=== PATIENT | male | born 1960 | race Caucasian/White ===

== ENCOUNTER → 2016-09-11 | Outpatient (CLI) | payer BC ==
[~2016-09-11] MED LIST: ACET-1311 PO; ASPEC81 PO; ATOR-22 PO; B-COMPLEX PO; BND25X PO; FLV400 PO; GLUCOSAMINE PO; IBUP-1459 PO; IRBE1TAB48 PO; LEVO150T PO; MULT-513 PO
[2016-09-11 09:35] LABS: BASO % 0.8 %; BASO ABS # 0.05 K/uL (0-0.2); COMPLETE YES; EOS % 14.5 %; HEMATOCRIT 44.5 % (42-52); IG% 0.2 %; LYMPH % 26.9 %; LYMPH ABS # 1.73 K/uL (1.2-3.4); MEAN CELL VOLUME 93.7 fL (80-100); MEAN CORPUSCULAR HEMOGLOBIN 32.4 pg (25-34); MEAN CORPUSCULAR HGB CONC 34.6 g/dl (32-36); MEAN PLATELET VOLUME 9.8 fL (7.4-10.4); MONO % 8.1 %; NEUT % 49.5 %; PLATELET COUNT 303 K/uL (130-400); RED BLOOD COUNT 4.75 M/uL (4.7-6.1); WHITE BLOOD COUNT 6.43 K/uL (4.8-10.8)
[2016-09-11 09:36] LABS: URINE APPEARANCE CLEAR (CLEAR); URINE BILIRUBIN NEG (NEG); URINE COLOR DK YELLOW; URINE NITRITE NEG (NEG); UROBILINOGEN NEG (NEG); ZZUR CULT IF INDIC CLEAN CATCH NO
[2016-09-11 09:38] LABS: MANUAL MICROSCOPIC REQUIRED? NO; REVIEW REQ? NO
[2016-09-11 09:48] LABS: ALT/SGPT 41 U/L (12-78); BLOOD UREA NITROGEN 24 mg/dl (7-18); BUN/CREATININE RATIO 24.8 (10-20); CARBON DIOXIDE 24 mmol/L (21-32); CHLORIDE 109 mmol/L (98-107); CHOLESTEROL 154 mg/dl (0-200); CREATININE 0.96 mg/dl (0.60-1.40); GLUCOSE 103 mg/dl (70-99); SODIUM 143 mmol/L (136-145); TRIGLYCERIDES 84 mg/dl (0-150); VERY LOW DENSITY LIPOPROT CALC 17 mg/dl
[2016-09-11 09:57] LABS: ALB/GLOB RATIO 1.3 (0.9-2); ALKALINE PHOSPHATASE 68 U/L (45-117); AST/SGOT 27 U/L (15-37); CHOLESTEROL/HDL RATIO 2.6; HDL CHOLESTEROL 59 mg/dl; LDL CHOLESTEROL CALCULATED 78 mg/dl; THYROID STIMULATING HORMONE 0.308 uIu/ml (0.300-4.500)
== END | disposition home or self-care (01) ==
LOC: C.LAB 07:29
PROVIDERS: ATTEND Internal Medicine
DX: E05.00 Thyrotoxicosis with diffuse goiter without thyrotoxic crisis or storm (principal); E03.9 Hypothyroidism, unspecified; E78.00 Pure hypercholesterolemia, unspecified; I10 Essential (primary) hypertension; R73.9 Hyperglycemia, unspecified; R97.20 Elevated prostate specific antigen [PSA]

== ENCOUNTER → 2016-12-31 | Outpatient (CLI) | payer BC ==
[2016-12-31 10:08] LABS: % FREE PSA 9.8 %; FREE PSA 0.45 ng/ml; PROSTATE SPECIFIC ANTIGEN 4.59 ng/ml (0.000-4.000)
== END | disposition home or self-care (01) ==
LOC: C.LAB 07:35
PROVIDERS: ATTEND Urology
DX: R97.20 Elevated prostate specific antigen [PSA] (principal)

== ENCOUNTER → 2017-01-07 | Outpatient (CLI) | payer BC ==
[2017-01-07 16:58] LABS: BLOOD UREA NITROGEN 20 mg/dl (7-18); BUN/CREATININE RATIO 22.2 (10-20)
== END | disposition home or self-care (01) ==
LOC: C.LAB 15:26
PROVIDERS: ATTEND Urology
DX: R97.20 Elevated prostate specific antigen [PSA] (principal)

== ENCOUNTER → 2017-01-10 | Outpatient (CLI) | payer BC ==
[~2017-01-10] MED LIST changes: +GADAVIST IV PRN
--- NOTE | 2017-01-10 16:03 | DIAGNOSTIC IMAGING REPORT ---
PROSTATE MRI COMBO CLINICAL HISTORY: 56 years-old Male presenting with elevated PSA. PSA 4.59 ng/mL. TECHNIQUE: Multisequence, multiplanar MR imaging of the prostate was performed before and after the administration of intravenous contrast. IV contrast: 10.5 mL of Gadavist. COMPARISON: None. FINDINGS: Prostate: The prostate measures 4.5 x 3.0 x 4.5 cm (calculated volume 32 mL). Mild changes of benign prostatic hyperplasia. Precontrast T1 weighted imaging demonstrates no evidence of intrinsic T1 hyperintensity to suggest hemorrhage. Seminal vesicles normal. Lesion 1: Location: Right anterior peripheral zone at the base to mid gland does not abut the overlying prostate capsule. This does not appear to invade the transition zone. The lesion does not extend across the midline. T2W: 4. Focal 6 mm region of homogeneous T2 hypointensity with partially circumscribed, partially ill-defined margins. No evidence of extraprostatic extension. DWI: 3. Focal mildly/moderately hypointense on ADC and isointense/mildly hyperintense on high b-value DWI. This measures 10 mm on ADC. DCE: Positive. Focal enhancement corresponding to a suspicious finding on T2-weighted imaging and ADC that is earlier than adjacent normal tissue. PI-RADS: 4. Clinically significant cancer is likely to be present. No lesion within the transition zone is identified. Scrotum: Bilateral testes retracted into the distal inguinal canals with associated small hydroceles. Bladder: Mildly trabeculated wall suggesting chronic outlet obstruction. Bowel: Evidence of internal hemorrhoids resulting in wall thickening of the distal rectum and anorectal junction. Lymph nodes: Prominent lymph node in the left external iliac region measuring 8 to 9 mm in the short axis, maintaining normal fatty hilum, possibly reactive. No pathologically enlarged lymph nodes.. Vasculature: Iliac vessels patent. Osseous structures: Normal bone marrow signal intensity. IMPRESSION: 1. 10 mm lesion in the right anterior peripheral zone of the base to mid gland is suspicious for clinically significant cancer (PI-RADS 4). 2. Benign prostatic hyperplasia. Electronically signed by: Miguel Ángel Hill M.D. 01/10/2017 4:01 PM Dictated Date/Time: 01/10/2017 2:48 PM
== END | disposition home or self-care (01) ==
LOC: C.MRIBC 12:56
PROVIDERS: ATTEND Urology
DX: R97.20 Elevated prostate specific antigen [PSA] (principal); N40.0 Benign prostatic hyperplasia without lower urinary tract symptoms

== ENCOUNTER → 2017-04-03 | Outpatient (CLI) | payer BC ==
[~2017-04-03] MED LIST changes: -GADAVIST IV PRN
== END | disposition home or self-care (01) ==
LOC: C.PATHSPEC 17:37
PROVIDERS: ATTEND Urology
DX: C61 Malignant neoplasm of prostate (principal)

== ENCOUNTER → 2017-04-10 | Outpatient (CLI) | payer BC ==
--- NOTE | 2017-04-10 13:40 | DIAGNOSTIC IMAGING REPORT ---
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 FINDINGS: The patient was injected with 25.8 mCi of technetium 99 M MDP. Three-hour delayed whole body images were acquired. There are foci of increased activity within the knees, likely on a degenerative/arthritic basis. There are foci of increased activity within the shoulders and cervical clavicular joints, likely degenerative/arthritic. There are foci of increased activity at the level of each first metatarsal phalangeal joint, likely degenerative/arthritic. There are no foci of increased activity viewed as suspicious for skeletal metastasis. IMPRESSION: No bone scan evidence of skeletal metastasis. Electronically signed by: Eitan Rick M.D. 04/10/2017 1:39 PM Dictated Date/Time: 04/10/2017 1:37 PM
== END | disposition home or self-care (01) ==
LOC: C.NUCL 09:13
PROVIDERS: ATTEND Urology
DX: C61 Malignant neoplasm of prostate (principal)

== ENCOUNTER 2017-06-03 06:55 | Inpatient (IN) | payer OTHER ==
[2017-05-13 15:01] VITALS: Ht 180.3 cm; Wt 111.3 kg
--- NOTE | 2017-05-13 15:18 | PAT Medication Instructions ---
Service Date May 13, 2017. Current Home Medication List Acetaminophen (Tylenol), 650 MG PO PRN Aspirin (Aspirin Ec), 81 MG PO QAM Atorvastatin (Lipitor), 20 MG PO QPM B-Complex Vitamins (Vitamin B-Complex), 1 TAB PO QAM Diphenhydramine Hcl (Diphen), 25 MG PO Q4H PRN for PRURITIS Diphenhydramine Hcl (Sleep) (Diphenhydramine Hcl), 1 TAB PO HS Fluocinonide (Lidex 0.05% Oint), 1 APPLN TOP Glucosamine Sulfate (Glucosamine), 1,000 MG PO QAM Ibuprofen (Ibuprofen), 400 MG PO Q4H PRN for Pain Irbesartan (Irbesartan), 150 MG PO QPM Levothyroxine Sodium (Synthroid), 150 MCG PO QAM Multivitamins/Minerals (Mvi With Minerals), 1 TAB PO QAM Triamcinolone Acet (Aristocort 0.1%), 1 APPLN TOP BID PRN for Affected Skin Folds [Folic Acid], 400 MCG PO QAM Medication Instructions For Your Scheduled Surgery - Check with surgeon and prescribing physician for instructions: Ibuprofen (Ibuprofen), 400 MG PO Q4H PRN for Pain Aspirin (Aspirin Ec), 81 MG PO QAM - Hold the following medications 2 weeks prior to surgery: Glucosamine Sulfate (Glucosamine), 1,000 MG PO QAM - Hold the following medications 24 hours prior to surgery: Triamcinolone Acet (Aristocort 0.1%), 1 APPLN TOP BID PRN for Affected Skin Folds Fluocinonide (Lidex 0.05% Oint), 1 APPLN TOP Irbesartan (Irbesartan), 150 MG PO QPM - Hold the following medications the morning of surgery: [Folic Acid], 400 MCG PO QAM Multivitamins/Minerals (Mvi With Minerals), 1 TAB PO QAM B-Complex Vitamins (Vitamin B-Complex), 1 TAB PO QAM Diphenhydramine Hcl (Diphen), 25 MG PO Q4H PRN for PRURITIS - Take the following medications the morning of surgery with a sip of water: Levothyroxine Sodium (Synthroid), 150 MCG PO QAM Acetaminophen (Tylenol), 650 MG PO PRN (okay to take up to 4 hours prior to surgery if needed) - Take the following medications as scheduled the night before surgery: Diphenhydramine Hcl (Sleep) (Diphenhydramine Hcl), 1 TAB PO HS Diphenhydramine Hcl (Diphen), 25 MG PO Q4H PRN for PRURITIS (if needed) Atorvastatin (Lipitor), 20 MG PO QPM Acetaminophen (Tylenol), 650 MG PO PRN (if needed) If you have any questions please call us at [phone] or [phone] or [phone]
[2017-05-13 16:11] LABS: BASO % 0.7 %; BASO ABS # 0.04 K/uL (0-0.2); EOS % 17.8 %; EOS ABS # 1.04 K/uL (0-0.5); HEMOGLOBIN 14.4 g/dL (14.0-18.0); IG# 0.01 K/uL (0.00-0.02); LYMPH % 23.8 %; LYMPH ABS # 1.39 K/uL (1.2-3.4); MEAN CELL VOLUME 93.8 fL (80-100); MEAN CORPUSCULAR HEMOGLOBIN 32.1 pg (25-34); MEAN CORPUSCULAR HGB CONC 34.3 g/dl (32-36); MONO % 8.4 %; MONO ABS # 0.49 K/uL (0.11-0.59); NEUT % 49.1 %; NEUT ABS # 2.88 K/uL (1.4-6.5); PLATELET COUNT 292 K/uL (130-400); RED CELL DISTRIBUTION WIDTH CV 13.1 % (11.5-14.5); RED CELL DISTRIBUTION WIDTH SD 44.6 fL (36.4-46.3); WHITE BLOOD COUNT 5.85 K/uL (4.8-10.8)
[2017-05-13 16:18] LABS: CALCIUM 9.1 mg/dl (8.5-10.1); CREATININE 0.98 mg/dl (0.60-1.40); POTASSIUM 3.8 mmol/L (3.5-5.1)
--- NOTE | 2017-05-13 16:21 | DIAGNOSTIC IMAGING REPORT ---
CHEST 2 VIEWS ROUTINE CLINICAL HISTORY: PAT preoperative evaluation COMPARISON STUDY: No previous studies for comparison. FINDINGS: The bones soft tissues and hemidiaphragms are normal. The cardiomediastinal silhouette is normal. The lungs are clear. The pulmonary vasculature is normal. IMPRESSION: Negative chest. The above report was generated using voice recognition software. It may contain grammatical, syntax or spelling errors. Electronically signed by: Leander Rodriguez M.D. 05/13/2017 4:20 PM Dictated Date/Time: 05/13/2017 4:20 PM
[~2017-06-03] VITALS: Ht 180.3 cm; Wt 111.3 kg
[2017-06-03] VITALS (7 sets, daily range): BP systolic 121–148; BP diastolic 76–98; PULSE 85–96; TEMP 36.5–36.9; O2SAT 94–98
[~2017-06-03 06:55] MED LIST changes: -ASPEC81 PO; +ASPI81TA28 PO; +B-CO1TAB29 PO; -B-COMPLEX PO; -BND25X PO; +CEFAZOLIN 2000MG IV PUSH 15 ML IV SCH; +DIPH1TAB49 PO; +DIPH50TA10 PO; -FLV400 PO; +FOLIC ACID PO; +GLUC10007 PO; -GLUCOSAMINE PO; +HEPARIN SOD 5000 UNIT/0.5 ML CARP SQ SCH; -IBUP-1459 PO; +IBUP1CAP9 PO; +LACTATED RINGER'S 1000ML 1,000 ML IV SCH; +LDXO60 TOP; +TRMCR130WC TOP
[2017-06-03] MEDS ORDERED: NEOSTIGMINE METHYLSULFATE 5 MG/5 ML SYR ONE (06:58)
[2017-06-03] MEDS ORDERED: LARYING-O-JET KIT (LTA) ONE (06:58)
[2017-06-03] MEDS ORDERED: PROPOFOL IV EMULSION 10 MG/ML 20 ML VIAL IV ONE (06:58)
[2017-06-03] MEDS ORDERED: GLYCOPYRROLATE INJ 0.2 MG/ML VIAL ONE ×2 (06:58→08:59)
[2017-06-03] MEDS ORDERED: LIDOCAINE HCL 2% 2 ML VIAL (20MG/ML) ONE (06:58)
[2017-06-03] MEDS ORDERED: ONDANSETRON INJ 2 MG/ML 2 ML VIAL ONE (06:58)
[2017-06-03] MEDS ORDERED: EpHEDrine SULFATE 50MG/5ML SYR ONE (06:58)
[2017-06-03] MEDS ORDERED: ROCURONIUM BROMIDE 10 MG/ML 5 ML VIAL IV ONE ×2 (06:58→08:59)
[2017-06-03] MEDS ORDERED: FENTANYL CITRATE INJ 50 MCG/1 ML 2 ML VIAL ONE (06:58)
[2017-06-03] MEDS ORDERED: MIDAZOLAM HCL 1 MG/ML 2ML VIAL ONE (06:58)
[2017-06-03] MEDS ORDERED: PHENYLEPHRINE 100MCG/ML 5ML SYR ONE (06:58)
[2017-06-03] MEDS ORDERED: DEXAMETHASONE SOD INJ 4 MG/ML VIAL ONE (06:58)
[2017-06-03] MEDS ORDERED: BELLADONNA/OPIUM SUPP 60 MG SUPP PR ONE (07:01)
[2017-06-03] MEDS ORDERED: BUPIVACAINE 0.5 % 5 MG/1 ML MPF 30ML VIAL ONE (07:04)
[2017-06-03] MEDS ORDERED: METHYLENE BLUE 0.5% 10 ML VIAL ONE (07:04)
--- NOTE | 2017-06-03 07:06 | History & Physical Bridge Note ---
H&P Re-Evaluation Bridge Note: I have examined the patient, reviewed the History & Physical and in the interval since the performance of the History & Physical I have noted the following changes of clinical significance: No changes noted
[2017-06-03] MEDS ORDERED: LABETALOL HCL IV 5 MG/ML 20ML IV PRN (08:15)
[2017-06-03] MEDS ORDERED: ONDANSETRON INJ 2 MG/ML 2 ML VIAL IV PRN ×2 (08:15→11:00)
[2017-06-03] MEDS ORDERED: ATROPINE SULFATE 0.1 MG/ML 5ML SYR IV PRN (08:15)
[2017-06-03] MEDS ORDERED: KETOROLAC TROMETHAMINE 30 MG/ML VIAL IV. PRN (08:15)
[2017-06-03] MEDS ORDERED: HYDROmorphone INJ 2 MG/ML SYR/VIAL ONE (08:41)
[2017-06-03] MEDS ORDERED: SURGICEL ABSORB HEMOSTAT 2IN X 14IN TOP ONE (09:14)
[2017-06-03] MEDS ORDERED: FLOSEAL HEMOSTATIC MATRIX 10ML TOP ONE (10:20)
[2017-06-03] MEDS ORDERED: KETOROLAC TROMETHAMINE 15 MG/ML VIAL IV PRN (11:00)
[2017-06-03] MEDS ORDERED: OXYBUTYNIN CHLORIDE 5 MG TAB PO PRN (11:00)
[2017-06-03] MEDS ORDERED: ACETAMINOPHEN/CODEINE 300/30MG TAB PO PRN (11:00)
[2017-06-03] MEDS ORDERED: TRIAMCINOLONE ACET 0.1% CR 15 GM TUBE EXT PRN (11:00)
[2017-06-03] MEDS ORDERED: CEFAZOLIN IV 2,000 MG in DEXTROSE 5% 50ML 50 ML IV SCH (11:00)
[2017-06-03] MEDS ORDERED: FLUOCINONIDE 0.05% OINT 15 GM TUBE EXT SCH (11:00)
[2017-06-03] MEDS ORDERED: HYDROmorphone INJ 1 MG/ML SYR IV PRN (11:00)
--- NOTE | 2017-06-03 11:17 | [facility] Operative Report ---
Operative Report Operative Date Jun 03, 2017. Pre-Operative Diagnosis Prostate cancer Post-Operative Diagnosis Prostate cancer Procedure(s) Performed Robotic assisted laparoscopic prostatectomy with bilateral pelvic lymph node dissection Jayne Surgeon Dr. Juan David Brennan Rug Cleaning Supervisor Surgeon(s) BENIGNO Meyer Estimated Blood Loss 200 mL Specimens Permanent specimens A: Periprostatic fat B: Right pelvic lymph node C: Left pelvic lymph node (clip) D: Prostate and seminal vesicles Drains Wayne Anesthesia Type General Complication(s) none Disposition yes Recovery Room / PACU Indications Prostate cancer Description of Procedure The patient was identified in the preoperative holding area, appropriate informed consents were reviewed and completed, and he was transported to the operating suite. Subcutaneous heparin was administered in the pre-operative holding area. Upon arrival in the operating suite, he received appropriate antibiotics and general anesthesia. He was positioned in dorsal lithotomy, a B& O suppository was inserted after digital rectal exam, and he was prepped and draped in standard fashion. A Wayne catheter was inserted in the sterile field. A Veress needle was passed per umbilicus with uniform insufflation of the abdomen to 15mmHg. He was placed in steep Trendelenburg position. A periumbilical incision was then made to accommodate a 12mm Visiport with 10mm 0degree laparoscope. Inspection of the abdomen was carried out, and there was no evidence of traumatic entry or injury secondary to the Veress needle. After confirming a clear anterior abdominal wall, ports were subsequently placed in standard robotic prostatectomy fashion without incident. To begin the robotic portion of the case, the left lateral aspect of the sigmoid was mobilized off of the left pelvic side wall to allow the pouch of Ron to be appropriately visualized. The medial umbilical ligaments were then controlled with bipolar electrocautery just inferior to the umbilicus. Following cauterization, they were divided utilizing monopolar cautery. A peritoneal incision was carried from this location to the medial aspect of the internal inguinal rings bilaterally with care to avoid opening through the ring. This incision was concluded when the vas deferens was reached. Dissection of the bladder and prostate off of the posterior aspect of the pubic arch was completed allowing full visualization of the prostate. The fat overlying the prostate was removed en bloc and passed off the table as a specimen labeled "periprostatic fat". The endopelvic fascia was cleared during this portion of the procedure, and subsequently opened - first on the right and then the left. The incision through the endopelvic fascia began near the prostate-bladder junction and was carried to the apex with extreme care to preserve all lateral levator musculature as well as the periurethral musculature and sphincter complex. The puboprostatic ligaments were thinned slightly bilaterally before placing a 0-Vicryl figure of 8 stitch around the DVC. The lymph node dissection was then conducted. External iliac vessels were identified on the pelvic side wall. The packet of fat and lymphatic tissue that resides just under the iliac vein was elevated and off of the vein with a split and roll technique. The packet was dissected laterally to the circumflex vein and distally to the obturator nerve which was preserved. The proximal aspect of the packet was carried towards the bifurcation of the iliac vessels. A combination of monopolar and bipolar cautery were used to assist with control. Clips were placed at the proximal and distal aspects of the packet prior to transection. After completing the dissection on both sides, the packets were collected and passed off of the table as specimens labeled "pelvic lymph nodes". My attention then returned to the prostate, with identification of the bladder neck aided by gentle traction on the Wayne catheter and lateral to medial pressure at the presumed level of the bladder neck with the robotic instruments. An anterior cystotomy was made, the Wayne balloon deflated and the catheter guided through the incision to allow anterior retraction. I attempted to preserve maximal bladder neck musculature as I circumferentially dissected around the bladder neck. After incision through the posterior aspect of the mucosa, the dissection was carried through detrusor muscle until the bilateral ampullae of the vasa were identified. After identifying the vasa, I developed a pedicle packet on each side to help flatten the dissection and placed Weck clips across the most proximal and superficial aspects of these packets adjacent to the bladder. The packets were then divided allowing easier visualization of the vasa and posterior aspect of the prostate. Vasa were each dissected before being transected. These were used to further aide in anterior retraction as the bilateral seminal vesicals were dissected with very judicious use of bipolar electrocautery. Following SV dissection, a posterior plane behind the prostate was developed - splitting Denonvilliers's fascia. This dissection was carried as far as possible towards the apex as well as far as possible laterally. An incision in the lateral prostatic fascia was then made bilaterally to facilitate control of the vascular pedicles. The pedicles were each controlled with a series of Weck clips. The neurovascular bundles were identified and preserved aggressively on the patient's left and more conservatively on the patient's right., The apical attachments of the prostate were remaining at that stage. The DVC was divided with bipolar electrocautery. She-prostatic tissue incised with sharp dissection and monopolar cautery. Maximal urethral length was preserved before dividing the urethra sharply. The prostate was entirely freed at that point, and collected in an EndoCatch bag before being moved out of the field of vision. Hemostasis was confirmed and anastomosis of the bladder and urethra was completed utilizing a double armed V- Lock stitch. A new Wayne catheter was inserted and the anastomosis tested with irrigation. There was no evidence of leak. FloSeal coagulant was placed around the anastomosis. The robot was undocked, the specimen extracted through expansion of the she- umbilical camera port. The fascia was closed with a series of 0-PDS figure of 8 stitches. The right computer assistant port was closed in two layers - with a figure of 8 0-Vicryl to reapproximate the fascia followed by 4-0 Monocryl to close the skin. Monocryl was used to close all other skin incisions. All wounds were dressed with Dermabond. The case was concluded and the patient taken to the PACU in stable condition. I attest to the content of the Intraoperative Record and any orders documented therein. Any exceptions are noted below.
[2017-06-03 11:46] LABS: HEMATOCRIT 42.3 % (42-52); HEMOGLOBIN 14.6 g/dL (14.0-18.0); MEAN CELL VOLUME 95.3 fL (80-100); MEAN CORPUSCULAR HEMOGLOBIN 32.9 pg (25-34); MEAN PLATELET VOLUME 9.5 fL (7.4-10.4); PLATELET COUNT 258 K/uL (130-400); RED CELL DISTRIBUTION WIDTH CV 12.8 % (11.5-14.5); RED CELL DISTRIBUTION WIDTH SD 44.7 fL (36.4-46.3); WHITE BLOOD COUNT 13.81 K/uL (4.8-10.8)
[2017-06-03] MEDS: HYDROmorphone INJ 0.5 MG/0.5 ML SYR IV PRN ×4 (11:46→12:05)
[2017-06-03 11:52] LABS: MEAN CORPUSCULAR HGB CONC 34.5 g/dl (32-36)
[2017-06-03 12:12] LABS: CALCIUM 8.5 mg/dl (8.5-10.1); CREATININE 1.29 mg/dl (0.60-1.40); POTASSIUM 4.2 mmol/L (3.5-5.1)
--- NOTE | 2017-06-03 13:17 | Anesthesiology Progress Note ---
Anesthesia Post Op Note Date & Time Jun 03, 2017 at 13:16 Vital Signs Pain Intensity: 3.0 Vital Signs Past 12 Hours Date Time Temp Pulse Resp B/P (MAP) Pulse Ox O2 Delivery O2 Flow Rate FiO2 06/03/17 12:35 Nasal Cannula 06/03/17 12:35 97 Nasal Cannula 2.0 06/03/17 12:35 36.8 93 18 131/86 (101) 97 Nasal Cannula 2.0 06/03/17 12:20 37 85 16 123/81 96 Nasal Cannula 2 06/03/17 12:10 93 16 126/87 96 Nasal Cannula 2 06/03/17 12:00 89 16 122/85 94 Nasal Cannula 2 06/03/17 11:50 85 16 132/83 97 Nasal Cannula 2 06/03/17 11:40 83 16 173/102 100 Oxymask 10 06/03/17 11:30 84 16 156/95 100 Oxymask 10 06/03/17 11:20 36.1 91 16 150/78 98 Oxymask 10 06/03/17 07:20 36.6 92 18 128/98 (108) Room Air 99 Notes Mental Status: alert / awake / arousable, participated in evaluation Pt Amnestic to Procedure: Yes Nausea / Vomiting: adequately controlled Pain: adequately controlled Airway Patency, RR, SpO2: stable & adequate BP & HR: stable & adequate Hydration State: stable & adequate Anesthetic Complications: no major complications apparent
[2017-06-03 14:19] LABS: PTT PATIENT 20.8 SECONDS (21.0-31.0)
[2017-06-03] MEDS: CEFAZOLIN IV 2,000 MG in SYRINGE 0 ML IV SCH ×2 (15:43→23:57)
[2017-06-03] MEDS: ACETAMINOPHEN 500 MG TAB PO SCH ×2 (17:36→23:57)
[2017-06-03] MEDS: LACTATED RINGER'S 1000ML 1,000 ML IV SCH (18:31)
[2017-06-03] MEDS ORDERED: NURSING VERBAL MED ORDER ONE (19:00)
[2017-06-03] MEDS: HEPARIN SOD 5000 UNIT/0.5 ML CARP SQ SCH (19:23)
[2017-06-03] MEDS: DOCUSATE SODIUM 100 MG CAP PO SCH (20:48)
[2017-06-03] MEDS ORDERED: IRBESARTAN 150 MG TAB PO SCH (21:00)
[2017-06-03] MEDS ORDERED: ATORVASTATIN 20 MG TAB PO SCH (21:00)
[2017-06-04] MEDS: LACTATED RINGER'S 1000ML 1,000 ML IV SCH ×2 (00:05→06:24)
[2017-06-04 03:10] VITALS: BP 119/73; PULSE 88; TEMP 37; O2SAT 96
[2017-06-04] MEDS ORDERED: LEVOTHYROXINE 150 MCG TAB PO SCH (06:00)
[2017-06-04] MEDS: ACETAMINOPHEN 500 MG TAB PO SCH ×2 (06:24→12:22)
[2017-06-04] MEDS: HEPARIN SOD 5000 UNIT/0.5 ML CARP SQ SCH (06:26)
[2017-06-04 06:40] LABS: BASO % 0.1 %; BASO ABS # 0.01 K/uL (0-0.2); EOS % 0.1 %; EOS ABS # 0.01 K/uL (0-0.5); HEMATOCRIT 35.8 % (42-52); HEMOGLOBIN 12.4 g/dL (14.0-18.0); IG# 0.02 K/uL (0.00-0.02); LYMPH % 10.2 %; LYMPH ABS # 1.15 K/uL (1.2-3.4); MEAN CORPUSCULAR HEMOGLOBIN 32.5 pg (25-34); MEAN CORPUSCULAR HGB CONC 34.6 g/dl (32-36); MEAN PLATELET VOLUME 9.4 fL (7.4-10.4); MONO % 10.2 %; MONO ABS # 1.15 K/uL (0.11-0.59); NEUT % 79.2 %; NEUT ABS # 8.97 K/uL (1.4-6.5); PLATELET COUNT 233 K/uL (130-400); RED CELL DISTRIBUTION WIDTH CV 12.9 % (11.5-14.5); RED CELL DISTRIBUTION WIDTH SD 44.2 fL (36.4-46.3); WHITE BLOOD COUNT 11.31 K/uL (4.8-10.8)
[2017-06-04 07:12] LABS: CREATININE 0.87 mg/dl (0.60-1.40); POTASSIUM 3.6 mmol/L (3.5-5.1)
[2017-06-04 08:15] VITALS: BP 140/96; PULSE 84; TEMP 36.8; O2SAT 95
[2017-06-04] MEDS ORDERED: GLUCOSAMINE SULFATE 500 MG CAP PO SCH (09:00)
[2017-06-04] MEDS ORDERED: CEROVITE ADV FORMULA TAB PO SCH (09:00)
[2017-06-04] MEDS ORDERED: FoLIC ACID TAB 400 MCG TAB PO SCH (09:00)
[2017-06-04] MEDS ORDERED: VITAMIN B COMPLEX TAB PO SCH (09:00)
[2017-06-04] MEDS ORDERED: ASPIRIN 81 MG ECTAB PO SCH (09:00)
--- NOTE | 2017-06-04 09:01 | Anesthesiology Progress Note ---
Anesthesia Post Op Note Date & Time Jun 04, 2017 at 09:01 Vital Signs Pain Intensity: 0.0 Vital Signs Past 12 Hours Date Time Temp Pulse Resp B/P (MAP) Pulse Ox O2 Delivery O2 Flow Rate FiO2 06/04/17 08:15 36.8 84 18 140/96 (111) 95 Room Air 06/04/17 03:10 37.0 88 18 119/73 (88) 96 Room Air 06/04/17 00:00 Room Air 06/03/17 23:00 36.9 85 18 123/77 (92) 96 Room Air Notes Mental Status: alert / awake / arousable, participated in evaluation Pt Amnestic to Procedure: Yes Nausea / Vomiting: adequately controlled Pain: adequately controlled Airway Patency, RR, SpO2: stable & adequate BP & HR: stable & adequate Hydration State: stable & adequate Anesthetic Complications: no major complications apparent
[2017-06-04] MEDS ORDERED: DTR5 PO ×2 (09:05→09:12)
[2017-06-04] MEDS ORDERED: ACET-749 PO ×2 (09:05→09:12)
[2017-06-04] MEDS ORDERED: CIPR1TAB10 PO ×2 (09:05→09:12)
[2017-06-04] MEDS ORDERED: CLC100 PO ×2 (09:05→09:12)
--- NOTE | 2017-06-04 09:07 | Discharge Instructions ---
Discharge Instructions Date of Service Jun 04, 2017. Admission Reason for Admission: Prostate Cancer Discharge Discharge Diagnosis / Problem: Prostate Cancer Discharge Goals Goal(s): Decrease discomfort, Improve disease control, Therapeutic intervention Activity Recommendations Activity Limitations: per Instructions/Follow-up section Shower/Bathe: tomorrow . Instructions / Follow-Up Instructions / Follow-Up 1. Do not lift >15lbs x 6 weeks. 2. No heavy exercise x 6 weeks. You may engage in light activity such as walking and stairs as tolerated. 3. No sexual intercourse until cleared by Dr. Brennan. 4. Do not drive x [address] while taking narcotics. 5. You have been prescribed Ciprofloxacin. Take 1 pill the morning of your catheter removal, and the second pill that evening. 6. Immediately call our office at [phone] if your catheter is removed for any reason. 7. Follow-up as scheduled. Please call our office at [phone] if you need to reschedule for any reason. . Current Hospital Diet Patient's current hospital diet: Clear Liquid Diet Discharge Diet Recommended Diet: Regular Diet Procedures Procedures Performed: Robotic assisted laparoscopic prostatectomy with bilateral pelvic lymph node dissection Jayne Pending Studies Studies pending at discharge: yes List of pending studies: prostate and lymph node pathology Medical Emergencies . Who to Call and When: Medical Emergencies: If at any time you feel your situation is an emergency, please call 911 immediately. . Non-Emergent Contact Non-Emergency issues call your: Urologist Call Non-Emergent contact if: temperature is above 101.5, your pain is not controlled, your pain is worsening, your pain is unusual for you, your pain is concerning you, wound has increased drainage, wound has increased redness, wound has increased pain, you have any medication questions . . "Provider Documentation" section prepared by Corinne Pierre. . VTE Core Measure Inpt VTE Proph given/why not?: Unfractionated heparin SQ, SCD's [place] Drug Monitoring Program Search Results: patient reviewed within database, no issues identified
[2017-06-04] MEDS: DOCUSATE SODIUM 100 MG CAP PO SCH (09:58)
[2017-06-04] MEDS: CEFAZOLIN IV 2,000 MG in SYRINGE 0 ML IV SCH (09:58)
--- NOTE | 2017-06-04 10:01 | Progress Note ---
Progress Note Date of Service Jun 04, 2017. Progress Note S: no issues overnight - pain controlled - ambulatory - tolerating clears O: Vital Signs Past 12 Hours Date Time Temp Pulse Resp B/P (MAP) Pulse Ox O2 Delivery O2 Flow Rate FiO2 06/04/17 08:15 36.8 84 18 140/96 (111) 95 Room Air 06/04/17 08:00 Room Air 06/04/17 03:10 37.0 88 18 119/73 (88) 96 Room Air 06/04/17 00:00 Room Air 06/03/17 23:00 36.9 85 18 123/77 (92) 96 Room Air 06/04/17 05:52 Red Blood Count 3.81, Mean Corpuscular Volume 94.0, Mean Corpuscular Hemoglobin 32.5, Mean Corpuscular Hemoglobin Concent 34.6, Mean Platelet Volume 9.4, Neutrophils (%) (Auto) 79.2, Lymphocytes (%) (Auto) 10.2, Monocytes (%) (Auto) 10.2, Eosinophils (%) (Auto) 0.1, Basophils (%) (Auto) 0.1, Neutrophils # (Auto ) 8.97, Lymphocytes # (Auto) 1.15, Monocytes # (Auto) 1.15, Eosinophils # (Auto ) 0.01, Basophils # (Auto) 0.01 06/04/17 05:52 Test 06/03/17 13:50 06/04/17 05:52 Prothrombin Time 10.7 SECONDS (9.0-12.0) Prothromb Time International Ratio 1.0 (0.9-1.1) Activated Partial Thromboplast Time 20.8 SECONDS (21.0-31.0) Partial Thromboplastin Ratio 0.8 White Blood Count 11.31 K/uL (4.8-10.8) Red Blood Count 3.81 M/uL (4.7-6.1) Hemoglobin 12.4 g/dL (14.0-18.0) Hematocrit 35.8 % (42-52) Mean Corpuscular Volume 94.0 fL (80-100) Mean Corpuscular Hemoglobin 32.5 pg (25-34) Mean Corpuscular Hemoglobin Concent 34.6 g/dl (32-36) Platelet Count 233 K/uL (130-400) Mean Platelet Volume 9.4 fL (7.4-10.4) Neutrophils (%) (Auto) 79.2 % Lymphocytes (%) (Auto) 10.2 % Monocytes (%) (Auto) 10.2 % Eosinophils (%) (Auto) 0.1 % Basophils (%) (Auto) 0.1 % Neutrophils # (Auto) 8.97 K/uL (1.4-6.5) Lymphocytes # (Auto) 1.15 K/uL (1.2-3.4) Monocytes # (Auto) 1.15 K/uL (0.11-0.59) Eosinophils # (Auto) 0.01 K/uL (0-0.5) Basophils # (Auto) 0.01 K/uL (0-0.2) RDW Standard Deviation 44.2 fL (36.4-46.3) RDW Coefficient of Variation 12.9 % (11.5-14.5) Immature Granulocyte % (Auto) 0.2 % Immature Granulocyte # (Auto) 0.02 K/uL (0.00-0.02) Anion Gap 7.0 mmol/L (3-11) Est Creatinine Clear Calc Drug Dose 116.0 ml/min Estimated GFR () 109.5 Estimated GFR (Non- 94.5 BUN/Creatinine Ratio 16.8 (10-20) Calcium Level 8.0 mg/dl (8.5-10.1) NAD AAOx3 abd soft - incisions appropriate urine clear no edema A/P: POD #1 s/p RALP with LND - ambulate - HL IVF - d/c home later today
[2017-06-04 10:30] VITALS: O2SAT 95
[2017-06-04 12:26] VITALS: BP 128/78; PULSE 94; TEMP 36.7; O2SAT 96
[2017-06-04 13:52] VITALS: BP 128/78; PULSE 94; TEMP 36.7; O2SAT 96
== END 2017-06-04 15:30 | disposition home or self-care (01) | DRG 716 ==
LOC: C.ACU 06:55 → C.3E 09:16 → ENRESERV 12:06
PROVIDERS: ADMIT Urology; ATTEND Urology
PROC: 0VB04ZX Excision of Prostate, Percutaneous Endoscopic Approach, Diagnostic (ICD-10-PCS; principal; 2017-06-03 08:45)
PROC: 8E0WXCZ Robotic Assisted Procedure of Trunk Region (ICD-10-PCS; principal; 2017-06-03 08:45)
PROC: 07BC4ZX Excision of Pelvis Lymphatic, Percutaneous Endoscopic Approach, Diagnostic (ICD-10-PCS; principal; 2017-06-03 08:45)
DX: C61 Malignant neoplasm of prostate (principal); E05.00 Thyrotoxicosis with diffuse goiter without thyrotoxic crisis or storm; E78.00 Pure hypercholesterolemia, unspecified; I10 Essential (primary) hypertension; E03.9 Hypothyroidism, unspecified; R76.11 Nonspecific reaction to tuberculin skin test without active tuberculosis

== ENCOUNTER → 2017-07-18 | Outpatient (CLI) | payer OTHER ==
[~2017-07-18] MED LIST changes: +ACET-749 PO; -CEFAZOLIN 2000MG IV PUSH 15 ML IV SCH; +CIPR1TAB10 PO; +CLC100 PO; +DTR5 PO; -HEPARIN SOD 5000 UNIT/0.5 ML CARP SQ SCH; -LACTATED RINGER'S 1000ML 1,000 ML IV SCH
== END | disposition home or self-care (01) ==
LOC: C.LAB 08:06
PROVIDERS: ATTEND Urology
DX: C61 Malignant neoplasm of prostate (principal)

== ENCOUNTER 2017-08-06 22:52 | Emergency (ER) | payer OTHER ==
[~2017-08-06] VITALS: Ht 181.6 cm; Wt 105.5 kg
[2017-08-06 22:56] VITALS: Ht 181.6 cm; Wt 105.5 kg
[2017-08-06] MEDS ORDERED: SODIUM CHLORIDE 0.9% 1000ML 2,000 ML IV STA (23:05)
[2017-08-06 23:32] VITALS: O2SAT 94
[2017-08-06 23:36] LABS: EOS % 0.3 %; EOS ABS # 0.02 K/uL (0-0.5); HEMATOCRIT 39.7 % (42-52); HEMOGLOBIN 13.9 g/dL (14.0-18.0); IG# 0.02 K/uL (0.00-0.02); LYMPH ABS # 0.35 K/uL (1.2-3.4); MEAN CELL VOLUME 92.3 fL (80-100); MEAN CORPUSCULAR HEMOGLOBIN 32.3 pg (25-34); MEAN PLATELET VOLUME 9.7 fL (7.4-10.4); MONO % 3.9 %; MONO ABS # 0.27 K/uL (0.11-0.59); NEUT % 90.5 %; NEUT ABS # 6.29 K/uL (1.4-6.5); PLATELET COUNT 276 K/uL (130-400); RED CELL DISTRIBUTION WIDTH CV 13.2 % (11.5-14.5); RED CELL DISTRIBUTION WIDTH SD 45.3 fL (36.4-46.3); WHITE BLOOD COUNT 6.95 K/uL (4.8-10.8)
[2017-08-06 23:44] LABS: INR 1.1 (0.9-1.1); PTT PATIENT 31.5 SECONDS (21.0-31.0)
[2017-08-06] MEDS ORDERED: IMIPENEM/CILASTATIN IV 500 MG in DEXTROSE 5% 100ML 100 ML IV STA (23:49)
[2017-08-06] MEDS ORDERED: DAPTOmycin IV 600 MG in SODIUM CHLORIDE 0.9% 50ML 50 ML IV STA (23:49)
[2017-08-06] MEDS ORDERED: ACETAMINOPHEN 500 MG TAB PO STA (23:53)
[2017-08-06 23:57] LABS: ALBUMIN 3.2 gm/dl (3.4-5.0); ALT/SGPT 24 U/L (12-78); AST/SGOT 16 U/L (15-37); BLOOD UREA NITROGEN 25 mg/dl (7-18); CARBON DIOXIDE 22 mmol/L (21-32); GLUCOSE 171 mg/dl (70-99); POTASSIUM 3.5 mmol/L (3.5-5.1); SODIUM 135 mmol/L (136-145)
[2017-08-06] MEDS ORDERED: SODIUM CHLORIDE 0.9% 1000ML 1,000 ML IV STA (23:57)
[2017-08-07] LABS: ALKALINE PHOSPHATASE 91 U/L (45-117); TOTAL PROTEIN 7.6 gm/dl (6.4-8.2)
[2017-08-07] MEDS ORDERED: OPTIRAY 320 IV PRN
--- NOTE | 2017-08-07 00:04 | EMERGENCY ROOM VISIT NOTE ---
History Report prepared by Otis: Fany Deleon Under the Supervision of: Dr. Codi Reynoso D.O. First contact with patient: 23:04 Chief Complaint: ABDOMINAL PAIN Stated Complaint: FEVER, CHILLS, PAIN BELOW NAVEL History of Present Illness The patient is a 57 year old male who presents to the Emergency Room with complaints of constant abdominal pain starting yesterday afternoon. The patient states that he started to think he had the flu two days ago. He states that he had a fever and chills that evening. He reports that yesterday morning he felt somewhat better, but still stayed home from work. He states that he had a loss of appetite yesterday. He reports eating only one [place] for dinner last night. The patient states that shortly after dinner he started having chills and a fever again. He states that he went to bed and when he awoke this morning he felt fine. He notes that the abdominal pain never stopped from when it came on. He currently rates his pain as a 5/10 in severity. The patient states that he stayed home from work again today. He reports that he took a shower this evening and then got severe chills. He states that he was shaking uncontrollably. The patient notes that he had a prostatectomy 2 months ago. He notes that he has been urinating normally, but has been more incontinent this week than usual. The patient complains of a cough and his muscles feeling tight. The patient denies abnormal drinking, rectal pain, leg cramping, leg swelling, and having diarrhea. He notes that he had 4 bowel movements today. Source of History: patient Onset: yesterday afternoon Position: abdomen Symptom Intensity: 5/10 Timing: constant Associated Symptoms: + fevers, + chills, + cough, No diarrhea Note: The patient complains of loss of appetite, bladder incontinence, and his muscles feeling tight. The patient denies abnormal drinking, rectal pain, leg cramping, and leg swelling. Review of Systems See HPI for pertinent positives & negatives. A total of 10 systems reviewed and were otherwise negative. Past Medical & Surgical Medical Problems: (1) Hypertension Nos Surgical Problems: (1) H/O shoulder surgery (2) S/P prostatectomy Family History Diabetes mellitus Heart disease Social History Smoking Status: Never Smoker Marital Status: Housing Status: lives with significant other Occupation Status: employed Current/Historical Medications Scheduled Acetaminophen (Tylenol), 650 MG PO PRN Aspirin (Aspirin Ec), 81 MG PO QAM Atorvastatin (Lipitor), 20 MG PO QPM B-Complex Vitamins (Vitamin B-Complex), 1 TAB PO QAM Diphenhydramine Hcl (Sleep) (Diphenhydramine Hcl), 50 MG PO HS Fluocinonide (Lidex 0.05% Oint), 1 APPLN TOP DAILY Glucosamine Sulfate (Glucosamine), 1,000 MG PO QAM Irbesartan (Irbesartan), 150 MG PO QPM Levothyroxine Sodium (Synthroid), 150 MCG PO QAM Multivitamins/Minerals (Mvi With Minerals), 1 TAB PO QAM [Folic Acid], 400 MCG PO QAM Scheduled PRN Diphenhydramine Hcl (Diphen), 25 MG PO Q4H PRN for PRURITIS Docusate Sodium (Docusate Sodium), 100 MG PO BID PRN for Constipation Ibuprofen (Ibuprofen), 400 MG PO Q4H PRN for Pain Triamcinolone Acet (Aristocort 0.1%), 1 APPLN TOP BID PRN for Affected Skin Folds Allergies Coded Allergies: No Known Allergies (Verified , 06/03/17) Physical Exam Vital Signs Date Time Temp Pulse Resp B/P (MAP) Pulse Ox O2 Delivery O2 Flow Rate FiO2 08/07/17 03:05 36.7 112 18 112/71 97 Room Air 08/07/17 02:45 115 18 108/66 95 Room Air 08/07/17 02:30 117 18 101/70 94 Room Air 08/07/17 02:15 114 20 110/71 94 Room Air 08/07/17 02:00 116 20 110/72 94 Room Air 08/07/17 01:45 117 22 100/73 94 Room Air 08/07/17 01:27 125 24 108/64 93 Room Air 08/07/17 01:06 38.1 127 20 109/64 94 Room Air 08/07/17 00:40 133 20 114/65 95 08/07/17 00:30 132 24 90/62 95 Room Air 08/07/17 00:00 139 24 112/56 93 Room Air 08/06/17 23:32 94 Room Air 08/06/17 23:30 38.2 135 24 128/74 96 Room Air 08/06/17 23:15 145 08/06/17 22:56 37.4 161 22 93/57 95 Room Air Physical Exam HEENT: Head - normocephalic and atraumatic Pupils are equal, round, and reactive to light. Extraocular eye muscles are intact, and sclera are anicteric. Nose - moist nasal mucosa without discharge. Mouth - moist buccal mucosa. Oropharynx is nonerythematous and there is no tonsillar exudate or edema noted. Neck: Supple; no JVD, nuchal rigidity, cervical lymphadenopathy, or auscultated bruits. Heart: Tachycardic rate and regular rhythm. There is a normal S1 and S2 with no murmurs, clicks, or gallops appreciated. Lungs: Clear to auscultation bilaterally with no wheezes, rales, or rhonchi. Abdomen: Soft, completely nontender, nondistended, with good bowel sounds. There are no palpable pulsatile masses or hepatosplenomegaly. There is no guarding, rigidity, or rebound noted. Extremities: No evidence of cyanosis, clubbing, or edema. There are easily palpable peripheral pulses. Skin: warm and dry with good turgor and no rashes. Medical Decision & Procedures ER Provider Diagnostic Interpretation: Radiology results as stated below per my review and the radiologist's interpretation: CHEST X-RAY: The results were interpreted by me. No obvious pulmonary infiltrate or pleural effusion. CT ABDOMEN & PELVIS With Contrast: Prostatectomy. Fluid collection in the pelvis , approximately 10 x 5 cm on the right and 4 x 7 on the left. Stranding in the fat in the pelvis around the bladder. Trace amounts of fluid in the para colic regions. Too small to characterize low attenuation foci in the kidneys. Right renal cyst. Colonic diverticula without diverticulitis. Radiologist: Bossman Godinez MD Study ready at 00:31 and initial results transmitted at 00:43. Laboratory Results 08/06/17 23:10 Red Blood Count 4.30, Mean Corpuscular Volume 92.3, Mean Corpuscular Hemoglobin 32.3, Mean Corpuscular Hemoglobin Concent 35.0, Mean Platelet Volume 9.7, Neutrophils (%) (Auto) 90.5, Lymphocytes (%) (Auto) 5.0, Monocytes (%) (Auto) 3.9, Eosinophils (%) (Auto) 0.3, Basophils (%) (Auto) 0.0, Neutrophils # (Auto) 6.29, Lymphocytes # (Auto) 0.35, Monocytes # (Auto) 0.27, Eosinophils # (Auto) 0.02, Basophils # (Auto) 0.00 08/06/17 23:10 Test 08/06/17 23:10 08/06/17 23:16 08/06/17 23:25 White Blood Count 6.95 K/uL (4.8-10.8) Red Blood Count 4.30 M/uL (4.7-6.1) Hemoglobin 13.9 g/dL (14.0-18.0) Hematocrit 39.7 % (42-52) Mean Corpuscular Volume 92.3 fL (80-100) Mean Corpuscular Hemoglobin 32.3 pg (25-34) Mean Corpuscular Hemoglobin Concent 35.0 g/dl (32-36) Platelet Count 276 K/uL (130-400) Mean Platelet Volume 9.7 fL (7.4-10.4) Neutrophils (%) (Auto) 90.5 % Lymphocytes (%) (Auto) 5.0 % Monocytes (%) (Auto) 3.9 % Eosinophils (%) (Auto) 0.3 % Basophils (%) (Auto) 0.0 % Neutrophils # (Auto) 6.29 K/uL (1.4-6.5) Lymphocytes # (Auto) 0.35 K/uL (1.2-3.4) Monocytes # (Auto) 0.27 K/uL (0.11-0.59) Eosinophils # (Auto) 0.02 K/uL (0-0.5) Basophils # (Auto) 0.00 K/uL (0-0.2) RDW Standard Deviation 45.3 fL (36.4-46.3) RDW Coefficient of Variation 13.2 % (11.5-14.5) Immature Granulocyte % (Auto) 0.3 % Immature Granulocyte # (Auto) 0.02 K/uL (0.00-0.02) Prothrombin Time 11.7 SECONDS (9.0-12.0) Prothromb Time International Ratio 1.1 (0.9-1.1) Activated Partial Thromboplast Time 31.5 SECONDS (21.0-31.0) Partial Thromboplastin Ratio 1.2 Urine Color DK YELLOW Urine Appearance TURBID (CLEAR) Urine pH 5.0 (4.5-7.5) Urine Specific [place] 1.030 (1.000-1.030) Urine Protein 2+ (NEG) Urine Glucose (UA) NEG (NEG) Urine Ketones TRACE (NEG) Urine Occult Blood 1+ (NEG) Urine Nitrite POS (NEG) Urine Bilirubin NEG (NEG) Urine Urobilinogen NEG (NEG) Urine Leukocyte Esterase SMALL (NEG) Urine WBC (Auto) >30 /hpf (0-5) Urine RBC (Auto) 0-4 /hpf (0-4) Urine Hyaline Casts (Auto) 10-30 /lpf (0-5) Urine Epithelial Cells (Auto) >30 /lpf (0-5) Urine Bacteria (Auto) 1+ (NEG) Urine Renal Epithelial Cells /lpf (0-5) Urine Pathogenic Casts 1-5 GRANULAR CASTS /lpf (0) Urine Yeast (Auto) (NONE PRSENT) Anion Gap 8.0 mmol/L (3-11) Est Creatinine Clear Calc Drug Dose 66.0 ml/min Estimated GFR () 58.2 Estimated GFR (Non- 50.2 BUN/Creatinine Ratio 16.7 (10-20) Calcium Level 9.0 mg/dl (8.5-10.1) Total Bilirubin 1.2 mg/dl (0.2-1) Aspartate Amino Transf (AST/SGOT) 16 U/L (15-37) Alanine Aminotransferase (ALT/SGPT) 24 U/L (12-78) Alkaline Phosphatase 91 U/L (45-117) Troponin I < 0.015 ng/ml (0-0.045) Total Protein 7.6 gm/dl (6.4-8.2) Albumin 3.2 gm/dl (3.4-5.0) Globulin 4.4 gm/dl (2.5-4.0) Albumin/Globulin Ratio 0.7 (0.9-2) Bedside Lactic Acid Venous 2.14 mmol/L (0.90-1.70) Influenza Type A Antigen Neg for Influ A (NEG) Influenza Type B Antigen Neg for Influ B (NEG) Laboratory results per my review. Medications Administered Medications (Trade) Dose Ordered Sig/Phyllis Route Start Time Stop Time Status Last Admin Dose Admin Sodium Chloride 2,000 ml @ 999 mls/hr Q2H1M STAT IV 08/06/17 23:05 08/07/17 01:05 DC 08/06/17 23:10 999 MLS/HR Imipenem/ Cilastatin Sodium 500 mg/Dextrose 110 ml @ 100 mls/hr NOW STAT IV 08/06/17 23:49 08/07/17 00:54 DC 08/07/17 00:05 100 MLS/HR Daptomycin 600 mg/ Sodium Chloride 62 ml @ 100 mls/hr NOW STAT IV 08/06/17 23:49 08/07/17 00:26 DC 08/07/17 00:30 100 MLS/HR Acetaminophen (Tylenol Tab) 1,000 mg NOW STAT PO 08/06/17 23:53 08/06/17 23:54 DC 08/07/17 00:00 1,000 MG Sodium Chloride 1,000 ml @ 200 mls/hr Q5H STAT IV 08/06/17 23:57 08/07/17 04:56 08/07/17 00:01 200 MLS/HR Sodium Chloride 500 ml @ 999 mls/hr Q31M STAT IV 08/07/17 01:47 08/07/17 02:17 DC 08/07/17 01:47 999 MLS/HR Procedure 2305: Ordered NSS 2000 ml @ 999 mls/hr IV. 2349: Ordered Daptomycin 600 mg/ Sodium Chloride 62 ml @ 100 mls/hr IV, Imipenem / Cilastatin Sodium 500 mg/ Dextrose 110 ml @ 1000 mls/hr IV. 2353: Ordered Tylenol Tab 1000 mg PO. 2357: Ordered NSS 1000 ml @ 200 mls/hr IV. 0147: Ordered NSS 500 ml @ 999 mls/hr IV. ECG Per My Interpretation Indication: tachycardia Rate (beats per minute): 135 Rhythm: sinus tachycardia Findings: RBBB (incomplete), ST depression (Lateral), ST elevation (V1 and V2) Comparison ECG Date: 05/13/2017 Change: no significant change ED Course 2304: Past medical records reviewed. The patient was evaluated in room C4. A complete history and physical exam was performed. A septic protocol was performed. A 12-lead EKG was obtained. 2305: Ordered NSS 2000 ml @ 999 mls/hr IV. 2349: Ordered Daptomycin 600 mg/ Sodium Chloride 62 ml @ 100 mls/hr IV, Imipenem / Cilastatin Sodium 500 mg/ Dextrose 110 ml @ 1000 mls/hr IV. 2352: The patient heart rate is down to 135 bpm. His blood pressure is up to 128 /78. His temperature is 38.2. 2353: Ordered Tylenol Tab 1000 mg PO. 2354: I reevaluated the patient and he is feeling better. The patient will go for CT scan of the abdomen/pelvis. 2357: Ordered NSS 1000 ml @ 200 mls/hr IV. 0110: I reevaluated the patient and updated him on his CT results. 0113: I discussed the patient's case with Dr. Thomas -[facility]. He states that he will keep the patient if urology wants him here. 0117: I discussed the patient's case with Dr. Brennan -Urology. He believes that the fluid collections are lymphoceles that are currently infected. He believes it is the right timing post surgically. He recommends sending the patient to a tertiary care center for interventional radiology. 0122: I reevaluated and updated the patient on the plan for treatment. 0147: Ordered NSS 500 ml @ 999 mls/hr IV. 0153: I discussed the patient's case with Dr. Loli Cadena Urology and Dr. Roselyn Burger Anesthesiology. They agreed to accept the patient for transfer and evaluate the patient for further management. 0208: I reevaluated the patient and updated him. 0254: I reevaluated the patient and he is doing okay. Medical Decision The patient is a 57 year old male who presents to the Emergency Room with complaints of constant abdominal pain starting yesterday afternoon. Differential diagnoses include sepsis, bacteremia, UTI, influenza, appendicitis , post-surgical infection, colitis. LABS: White count 6.9 90% neutrophils Hemoglobin 13.9 Platelet count 276 Lactic acid 2.1 BUN 25 Creatinine 1.5 Glucose 171 Normal LFTs Normal Coags Negative influenza Urinalysis: trace ketones, 1+ blood, positive nitrite, greater than 30 white blood cells, small leukocyte esterase, 1+ bacteria, 1-5 granular casts This is a 57-year-old male patient who is 2 months status post prostatectomy who presents to the emergency department with lower abdominal pain, fever and chills. Urinalysis appears to be infected. However, on CT scan of the abdomen/ pelvis, the patient has 2 large fluid collections in the pelvis. This is concerning for possible source of his sepsis. Upon presentation, the patient was significantly hypotensive. He responded nicely to crystalloid resuscitation. He was treated with IV antibiotics. Arrangements were made for transfer to [facility] where he was accepted to their SICU. He is hemodynamically stable at the time of transfer. Medication Reconcilliation Current Medication List: was personally reviewed by me Blood Pressure Screening Patient's blood pressure: Low blood pressure Will be further monitored by the transfer hospital. Consults Time Called: 0110 Consulting Physician: Dr. Martha BISWAS [facility] Returned Call: 0113 I discussed the patient's case with Dr. [facility]. He states that he will keep the patient if urology wants him here. Additional Consults: Time Called: 0110 Consulted Physician: Dr. Mika Elder Returned Call: [phone] Additional Comments: I discussed the patient's case with Dr. Mika Elder. He believes that the fluid collections are lymphoceles that are currently infected. He believes it is the right timing post surgically. He recommends sending the patient to a tertiary care center for interventional radiology. Time Called: 0120 Consulted Physician: Dr. Loli Cadena Urology and Dr. Roselyn Burger Anesthesiology Returned Call: [phone] Additional Comments: I discussed the patient's case with Dr. Loli Cadena Urologtania and Dr. Roselyn Cadena Anesthesiology. They agreed to accept the patient for transfer and evaluate the patient for further management. Impression Primary Impression: Septic shock Additional Impressions: UTI (urinary tract infection) Pelvic fluid collection Critical Care I have personally spent greater than 45 minutes of critical care time in the direct management of this patient. This includes bedside care, interpretation of diagnostic studies, and testing, discussion with consultants, patient, and family members, and other required patient management activities. This 45 minutes is in excess of all separately billable procedures. Scribe Attestation The scribe's documentation has been prepared under my direction and personally reviewed by me in its entirety. I confirm that the note above accurately reflects all work, treatment, procedures, and medical decision making performed by me. Departure Information Dispostion Transfer Acute Care Facility Referrals Benton, Christopher E.,M.D. (PCP) Patient Instructions My [facility] Problem Qualifiers Additional Impressions: UTI (urinary tract infection) Urinary tract infection type: acute cystitis Hematuria presence: without hematuria Qualified Codes: N30.00 - Acute cystitis without hematuria
[2017-08-07 00:06] LABS: INFLUENZA B ANTIGEN Neg for Influ B (NEG)
[2017-08-07] MEDS ORDERED: SODIUM CHLORIDE 0.9% 500ML 500 ML IV STA (01:47)
[2017-08-07] MEDS ORDERED: DOCU100C31 PO (02:00)
[2017-08-07 03:05] VITALS: BP 112/71; PULSE 112; TEMP 36.7; O2SAT 97
--- NOTE | 2017-08-07 07:08 | DIAGNOSTIC IMAGING REPORT ---
CHEST ONE VIEW PORTABLE HISTORY: Sepsis COMPARISON: Chest 05/13/2017. FINDINGS: The heart is borderline enlarged. Low lung volumes. Interstitial prominence may be due to to the low lung volumes. No focal lung consolidations to suggest pneumonia. No evidence for pulmonary edema. No pleural effusions. No pneumothorax. IMPRESSION: No significant change compared to the prior study. No acute process. Electronically signed by: Cl Grimm M.D. 08/07/2017 7:07 AM Dictated Date/Time: 08/07/2017 7:06 AM
--- NOTE | 2017-08-07 07:36 | DIAGNOSTIC IMAGING REPORT ---
ABDOMEN AND PELVIS CT WITH IV CONTRAST CT DOSE: 923.24 mGy.cm HISTORY: Lower abdominal pain. eval post surgical bed- prostate and appy. TECHNIQUE: Multiaxial CT images of the abdomen and pelvis were performed following the use of intravenous contrast. A dose lowering technique was utilized adhering to the principles of ALARA. COMPARISON STUDY: None. FINDINGS: The lung bases are essentially clear. No pneumoperitoneum. No pneumatosis. No suspicious lytic or blastic osseous lesions. The liver, spleen, adrenal glands, and pancreas are unremarkable. No hydronephrosis. Bilateral renal hypodense lesions. Majority these are subcentimeter in size and too small to characterize. Dominant lesion within the upper pole of the right kidney measures 2.7 cm. This favors a cyst. No retroperitoneal lymphadenopathy. Colonic diverticulosis. No bowel wall thickening or obstruction. The appendix is normal in caliber. This measures up to 5 mm in diameter. Trace fluid along the bilateral paracolic gutters. Within the anterior extraperitoneal space there is a rim-enhancing fluid collection surrounding the anterior border of the bladder. This measures up to 10 x 9 cm. This compresses the bladder. There is fat stranding surrounding the bladder. The prostate gland is surgically absent. IMPRESSION: 1. A 10 x 9 cm rim-enhancing fluid collection surrounding the anterior aspect of the bladder. This is consistent with an abscess. This appears to be separate from the bladder. 2. The bladder is compressed by this abscess. 3. Normal caliber appendix. 4. No bowel wall thickening or obstruction. Electronically signed by: Cl Grimm M.D. 08/07/2017 7:35 AM Dictated Date/Time: 08/07/2017 7:27 AM
== END 2017-08-07 03:10 | disposition short-term general hospital (02) ==
LOC: C.EDB 22:55
DX: N30.00 Acute cystitis without hematuria (principal); R65.21 Severe sepsis with septic shock; I10 Essential (primary) hypertension

== ENCOUNTER → 2017-09-01 | Outpatient (CLI) | payer OTHER ==
[~2017-09-01] MED LIST changes: -ACET-749 PO; -CIPR1TAB10 PO; -CLC100 PO; +DOCU100C31 PO; -DTR5 PO
== END | disposition home or self-care (01) ==
LOC: C.LAB 17:23
PROVIDERS: ATTEND Urology
DX: C61 Malignant neoplasm of prostate (principal)

== ENCOUNTER → 2017-12-01 | Outpatient (CLI) | payer OTHER ==
[~2017-12-01] MED LIST changes: -IBUP1CAP9 PO; +IBUP200C80 PO
== END | disposition home or self-care (01) ==
LOC: C.LAB 12:25
PROVIDERS: ATTEND Urology
DX: C61 Malignant neoplasm of prostate (principal)